=== PATIENT | female | born 1940 | race Caucasian/White ===

== ENCOUNTER → 2018-11-21 | Outpatient (CLI) | payer MEDICARE, BC | END | disposition home or self-care (01) | LOC: C/S 14:49 | DX: R93.1 Abnormal findings on diagnostic imaging of heart and coronary circulation (principal) | CPT/HCPCS: 71250 ==

== ENCOUNTER → 2018-11-28 | Outpatient (CLI) | payer MEDICARE, BC ==
[2018-11-28] MEDS: SOD CHLORIDE 0.9% 100 ML (15:11)
[2018-11-28] MEDS: IOHEXOL 300MG/ML 150 ML BTL (15:11)
== END | disposition home or self-care (01) ==
LOC: C/S 13:41
DX: R93.1 Abnormal findings on diagnostic imaging of heart and coronary circulation (principal)
CPT/HCPCS: 71250; 74178